=== PATIENT | female | born 1960 | race Caucasian/White ===

== ENCOUNTER 2019-05-08 21:12 | Inpatient (IN) ==
[2019-05-08 21:52] LABS: Basophils # (auto) 0.03 K/uL (0-0.2); Basophils % (auto) 0.4 %; Eosinophils # (auto) 0.22 K/uL (0-0.5); Eosinophils % (auto) 2.8 %; Hematocrit (blood only) 42.4 % (37-47); Hemoglobin 14.6 g/dL (12.0-16.0); Immature Granulocytes # (auto) 0.02 K/uL (0.00-0.02); Immature Granulocytes % (auto) 0.3 %; Lymphocytes # (auto) 3.18 K/uL (1.2-3.4); Lymphocytes % (auto) 41.1 %; Mean Corpuscular Hgb Conc 34.4 g/dL (32-36); Mean Corpuscular Volume 96.8 fL (80-100); Mean Platelet Volume 9.9 fL (7.4-10.4); Monocytes # (auto) 1.02 K/uL (0.11-0.59); Monocytes % (auto) 13.2 %; Neutrophils # (auto) 3.26 K/uL (1.4-6.5); Neutrophils % (auto) 42.2 %; Platelet Count 276 K/uL (130-400); RDW Coefficient of Variation 12.8 % (11.5-14.5); RDW Standard Deviation 44.8 fL (36.4-46.3); Red Blood Count 4.38 M/uL (4.2-5.4); White Blood Count 7.73 K/uL (4.8-10.8)
--- NOTE | 2019-05-08 22:07 | CT Scan Report ---
HEAD CT NONCONTRAST CT DOSE: 537.48 mGy.cm HISTORY: episode of left arm tingling TECHNIQUE: Multiaxial CT images of the head were performed without the use of intravenous contrast. A utomated exposure control was utilized for this study. A dose lowering technique was utilized adheri ng to the principles of ALARA. Comparison: None. Findings: The paranasal sinuses and mastoid air cells are clear. The calvarium and skull base are int act. The ventricles and sulci are within normal limits. There is no mass, hematoma, midline shift, or acute infarct. Impression: No acute intracranial abnormality. Electronically signed by: Srinath Alcantara M.D. 05/08/2019 10:05 PM
[2019-05-08 22:11] LABS: Alanine Aminotransferase 18 U/L (12-78); Albumin Level 3.8 gm/dl (3.4-5.0); Aspartate Aminotransferase 17 U/L (15-37); BUN Creatinine Ratio 8.8 (10-20); Blood Urea Nitrogen 8 mg/dl (7-18); Calcium 9.1 mg/dl (8.5-10.1); Carbon Dioxide 29 mmol/L (21-32); Chloride 104 mmol/L (98-107); Creatinine Clr Calc Pharmacy 59.5 ml/min; Est GFR (African American) 78.5; Est GFR (Non-African American) 67.7; Glucose 104 mg/dl (70-99); Potassium 3.7 mmol/L (3.5-5.1); Sodium 139 mmol/L (136-145)
--- NOTE | 2019-05-08 22:15 | XRay Report ---
XR chest 1V portable HISTORY: weakness COMPARISON: None. FINDINGS: The lungs are clear. Cardiac silhouette is normal in size. No pleural effusions. No pneumot horax. IMPRESSION: No acute process. Electronically signed by: Srinath Alcantara M.D. 05/08/2019 10:14 PM
[2019-05-08 22:22] LABS: Alkaline Phosphatase 84 U/L (45-117); Bilirubin,Total 0.3 mg/dl (0.2-1); Globulin 3.7 gm/dl (2.5-4.0); Total Protein 7.5 gm/dl (6.4-8.2); Troponin I < 0.015 ng/ml (0-0.045)
[2019-05-08 22:34] LABS: T4 Free Thyroxine 0.95 ng/dl (0.8-1.6)
[2019-05-08] MEDS ORDERED: ASPIRIN CHEW 324 MG PO STA (23:15)
[2019-05-08] MEDS ORDERED: POTASSIUM CHLORIDE 20 MEQ TABCR PO STA (23:20)
--- NOTE | 2019-05-08 23:30 | Emergency Department Note ---
Entered by Lian Cardenas acting as a scribe for History of Present Illness General Chief complaint: Neuro Symptoms/Deficit Stated complaint: TINGLING IN ARMS & FINGERS, DIZZY Time Seen by Provider: 05/08/19 21:28 History of Present Illness Associated symptoms: + other (- neck pain, +anxious, +hair loss); no confusion, no chest pain, no fever/chills and no headaches Treatments prior to arrival: none The patient is a 58 year old female that presents to the Emergency Department with complaints of numbness in her left hand. Per the patient, her symptoms began 4 days ago after she left her friends house. When the patient got home, she was picking up a water bottle and her entire left arm went numb and the feeling soon returned after a few minutes. She has had similar episodes throughout the past few days. She also is feeling a tingling sensation in both of her arms. 4 days ago, before the symptoms began, she helped move a tent about three feet and was fine right after. The patient has been going to work since the incidents. No fevers, headache, chest pain, heart racing, neck pain. The patient is anxious and has Graves disease. The patient was on an estrogen patch that she took off one day ago. The patient also has had hair loss for a long time. The patient has no history of strokes. The patient has been a smoker for about 40 years. Home Medications Home Medications Medication Instructions Recorded Confirmed Type estradiol 0.05 mg TRANSDERMAL 2XWK 05/08/19 05/08/19 History spironolactone 25 mg PO BID 05/08/19 05/08/19 History Allergies Allergy/AdvReac Type Severity Reaction Status Date / Time No Known Allergies Allergy Verified 05/08/19 22:31 Past Med/Surg History Medical History Graves disease Social History Feels Safe at Home: Yes Smoking Status: Current every day smoker Review of Systems See HPI for pertinent positives & negatives. and A total of 10 systems reviewed and were otherwise negative Physical Exam Vital Signs Vital Signs - 24 hr 05/08/19 21:14 05/08/19 22:07 05/08/19 23:51 Temperature 36.5 C Temperature Source Oral Sepsis Recent Fever Within 48 Hours No Sepsis New/Unexplained Change in Mental Status No Sepsis Action Taken by Nursing No Action Required Pulse Rate 113 H Pulse Rate [Right Finger] 83 83 Pulse Rhythm Regular Pulse Rhythm [Right Finger] Regular Regular Pulse Strength Normal Pulse Strength [Right Finger] Normal Respiratory Rate 18 18 18 Respiratory Effort / Characteristics Non-Labored Spontaneous Non-Labored Respiratory Depth Normal Normal Normal Respiratory Pattern Regular Regular Blood Pressure 153/90 H Blood Pressure [Left Arm] 107/80 107/80 Blood Pressure Mean 111 Blood Pressure Mean [Left Arm] 89 89 Blood Pressure Position Sitting Blood Pressure Position [Left Arm] Sitting Pulse Oximetry 100 99 96 Oxygen Delivery Method Room Air Room Air Room Air General: Non-ill appearing slender older female in no acute distress. HEENT: Normal cephalic atraumatic. Pupils are equal round and reactive to light. Extraocular movements are intact. Exophthalmos Oropharynx is pink with moist mucous membranes. No swelling of the mouth lips or tongue. Neck: Supple with a midline trachea. No meningeal signs or stiffness, no JVD or bruits. No Stridor. No goiter. Chest: Clear to auscultation bilaterally. No wheezes or rhonchi. No increased work of breathing. Heart: regular rate and rhythm. Abdomen: Soft nontender, nondistended without rebound guarding or rigidity. Extremities: No cyanosis clubbing or edema. No calf tenderness or asymmetry Spine/Back. Non tender to palpation. No CVA tenderness Skin: Good turgor without rashes. Neurologic exam: Cranial nerves two through 12 are intact. Motor and sensation are intact and symmetrical throughout. No tremor, finger to nose intact. Negative Romberg. Normal gait, normal heel to toe gait. Course 2127: The patient was evaluated in room A12B. A physical exam was performed. 2158: I checked up on the patient, she just left for her CT scan. 2254: I checked up on the patient and she is resting comfortably, she is asymptomatic. 6: I spoke with Dr. Rao, [facility] Hospitalist, about the patients case and he agreed to accept the patient for further evaluation. 2325: The patient has been admitted. Administered Medications Discontinued Medications Aspirin (Aspirin) 324 mg PO NOW STA Stop: 05/08/19 23:16 Last Admin: 05/08/19 23:22 Dose: 324 mg Documented by: [id number] Potassium Chloride (Klor-Con M20) 40 meq PO NOW STA Stop: 05/08/19 23:21 Last Admin: 05/09/19 00:06 Dose: 40 meq Documented by: [id number] Medical Decision Making Differential Diagnosis Differential Diagnosis: TIA, intracranial process, anxiety, neuropathy, thyroid disease, electrolyte or metabolic abnormalities Medical Records Attestation: I reviewed the patient's medical records. Home Medications Current Medication List: was personally reviewed by me Laboratory Data Attestation: I reviewed the patient's lab results. Result diagrams: 05/08/19 21:44 05/08/19 21:44 Lab Results 05/08/19 05/08/19 Range/Units 21:44 21:44 WBC 7.73 (4.8-10.8) K/uL RBC 4.38 (4.2-5.4) M/uL Hgb 14.6 (12.0-16.0) g/dL Hct 42.4 (37-47) % MCV 96.8 (80-100) fL MCH 33.3 (25-34) pg MCHC 34.4 (32-36) g/dL RDW Std Deviation 44.8 (36.4-46.3) fL RDW Coeff of Prasanna 12.8 (11.5-14.5) % Plt Count 276 (130-400) K/uL MPV 9.9 (7.4-10.4) fL Immature Gran % (Auto) 0.3 % Neut % (Auto) 42.2 % Lymph % (Auto) 41.1 % [place] % (Auto) 13.2 % Eos % (Auto) 2.8 % Baso % (Auto) 0.4 % Immature Gran # (Auto) 0.02 (0.00-0.02) K/uL Neut # (Auto) 3.26 (1.4-6.5) K/uL Lymph # (Auto) 3.18 (1.2-3.4) K/uL [place] # (Auto) 1.02 H (0.11-0.59) K/uL Eos # (Auto) 0.22 (0-0.5) K/uL Baso # (Auto) 0.03 (0-0.2) K/uL Sodium 139 (136-145) mmol/L Potassium 3.7 (3.5-5.1) mmol/L Chloride 104 (98-107) mmol/L Carbon Dioxide 29 (21-32) mmol/L Anion Gap 6.0 (3-11) BUN 8 (7-18) mg/dl Creatinine 0.93 (0.6-1.2) mg/dl Est Cr Clr Drug Dosing 59.5 ml/min Est GFR ( Amer) 78.5 Est GFR (Non-Af Amer) 67.7 BUN/Creatinine Ratio 8.8 L (10-20) Glucose 104 H (70-99) mg/dl Calcium 9.1 (8.5-10.1) mg/dl Magnesium 2.1 (1.8-2.4) mg/dl Total Bilirubin 0.3 (0.2-1) mg/dl AST 17 (15-37) U/L ALT 18 (12-78) U/L Alkaline Phosphatase 84 (45-117) U/L Troponin I < 0.015 (0-0.045) ng/ml Total Protein 7.5 (6.4-8.2) gm/dl Albumin 3.8 (3.4-5.0) gm/dl Globulin 3.7 (2.5-4.0) gm/dl Albumin/Globulin Ratio 1.0 (0.9-2) TSH 7.160 H (0.300-4.500) uIu/ml Free T4 0.95 (0.8-1.6) ng/dl Imaging Data Attestation: I personally reviewed and interpreted this imaging study as follows: Radiologist's Impression: Radiology results as stated below per my review and the radiologist's interpretation: HEAD CT NONCONTRAST CT DOSE: 537.48 mGy.cm HISTORY: episode of left arm tingling TECHNIQUE: Multiaxial CT images of the head were performed without the use of intravenous contrast. Automated exposure control was utilized for this study. A dose lowering technique was utilized adhering to the principles of ALARA. Comparison: None. Findings: The paranasal sinuses and mastoid air cells are clear. The calvarium and skull base are intact. The ventricles and sulci are within normal limits. There is no mass, hematoma, midline shift, or acute infarct. Impression: No acute intracranial abnormality. Electronically signed by: Srinath Alcantara M.D. 05/08/2019 10:05 PM XR chest 1V portable HISTORY: weakness COMPARISON: None. FINDINGS: The lungs are clear. Cardiac silhouette is normal in size. No pleural effusions. No pneumothorax. IMPRESSION: No acute process. Electronically signed by: Srinath Alcantara M.D. 05/08/2019 10:14 PM ECG Data Attestation: I personally reviewed and interpreted this ECG as follows: Indication: other (numbness) Rate (beats per minute): 85 Rhythm: normal sinus Findings: no ST depression, no ST elevation, no acute ischemic change and no ectopy Comparison ECG Date: no prior available Blood Pressure Blood Pressure Findings: Normal blood pressure MDM Narrative This patient comes in as described above. She was placed in room A12. She is here for treatment and evaluation of feeling anxious and shaky after having 3 recent episodes where she had some numbness and weakness in her left hand. This happened several days ago and lasted about 10 seconds it occurred twice the next day. She has had none since then. She also tingling in her face at the time. She has no neurologic deficits at present. IV access established and blood work was obtained. CAT scan of her head is unremarkable. EKG does not suggest acute coronary syndrome or arrhythmia. She has no acute electrolyte or metabolic abnormalities. Her TSH is mildly elevated but her free T4 is normal and I do not think this is related to acute thyroid issue. She was given aspirin 324 mg chewable. I am concerned with her repetitive symptoms that she could have had stuttering TIA type picture and I do think she needs to be admitted/observe for further inpatient neurologic evaluation and monitoring. I have consulted Dr. Michael from [facility] to see her for these measures. Impression & Plan Brain TIA, Graves disease, Numbness and tingling in left hand Discharge Plan Visit Data Chief Complaint: Neuro Symptoms/Deficit Stated Complaint: TINGLING IN ARMS & FINGERS, DIZZY ED Provider: Mitchel Alejandra Discharge Problem: Brain TIA, Graves disease, Numbness and tingling in left hand Patient Disposition: Being Evaluated by Hospitalist Forms Stand Alone Forms: My [facility] [employer] Prescriptions Prescriptions: No Action estradiol 0.05 mg/24 hr Patch Weekly 0.05 mg transdermal 2XWK RF: 0 spironolactone 25 mg Tablet 25 mg PO BID RF: 0 Referrals Referrals: Georgette Hickman MD [Primary Care Provider] - The scribe's documentation has been prepared under my direction and personally reviewed by me in its entirety. I confirm that the note above accurately reflects all work, treatment, procedures, and medical decision making performed by me.
[2019-05-08 23:37] LABS: Magnesium 2.1 mg/dl (1.8-2.4)
--- NOTE | 2019-05-09 00:01 | History & Physical Report ---
Date of Service May 09, 2019 Assessment & Plan (1) TIA (transient ischemic attack): Episodic left upper extremity weakness, numbness Rule out TIA Graves' ophthalmopathy as per records Subclinical hypothyroidism, TSH slightly elevated Cervical cancer status post surgery Ongoing tobacco abuse OBS Medical telemetry Neurochecks MRI/MRA of the brain RE TIA Aspirin for secondary stroke prevention until TIA ruled out Neurology consult RE recurrent left upper extremity numbness/ weakness nicotine patch DVT prophylaxis. Lovenox subcu Full code History of Present Illness Chief Complaint: Left upper extremity numbness, weakness Primary Care Provider: Georgette Hickman MD History obtained from patient, family, and records. Medical history significant for Graves' disease/ophthalmopathy not on medications, subclinical hypothyroidism as per records, cervical cancer status post surgery, COPD as per records, ongoing tobacco abuse. 3 days ago, patient noted left upper extremity weakness, numbness lasting for about 10 seconds. Patient had trouble grasping objects. No headache, neck pain, chest pain, S OB. No prior episodes. Episode recurred 2 more times 2 days ago. Patient took off her estrogen patch just to make sure medication was not related to symptoms. At the ER, patient received aspirin for possible TIA. 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, office work Allergies Allergy/AdvReac Type Severity Reaction Status Date / Time No Known Allergies Allergy Verified 05/08/19 22:31 Home Medications Home Medications Medication Instructions Recorded Confirmed Type estradiol 0.05 mg TRANSDERMAL 2XWK 05/08/19 05/08/19 History spironolactone 25 mg PO BID 05/08/19 05/08/19 History Past Med/Surg History Medical History Graves disease Social History Feels Safe at Home: Yes Smoking Status: Current every day smoker Review of Systems Review of Systems: As per HPI, all 10 systems reviewed, all other ROS negative Physical Exam Physical Exam: GENERAL: Slightly anxious, no respiratory distress SKIN: Normal color, warm HEENT: Bespectacled, pink palpebral conjunctivae, bilateral proptosis right greater than the left, moist buccal mucosa NECK : Supple, no tenderness, good R OM CHEST : CTA, no tenderness HEART : RRR, no obvious murmurs ABDOMEN: Some distention, nontender EXTREMITIES : No LE swelling/tenderness, no other conspicuous deformities noted NEUROLOGIC : Coherent, no facial asymmetry, negative pronator drift Results & Data Vital Signs (Past 12 Hours) Vital Signs Temp Pulse Pulse Resp BP BP Pulse Ox 05/08/19 23:51 83 18 107/80 96 05/08/19 22:07 83 18 107/80 99 05/08/19 21:14 36.5 C 113 H 18 153/90 H 100 Laboratory Results Laboratory Results WBC 7.73 K/uL (4.8-10.8) 05/08/19 21:44 RBC 4.38 M/uL (4.2-5.4) 05/08/19 21:44 Hgb 14.6 g/dL (12.0-16.0) 05/08/19 21:44 Hct 42.4 % (37-47) 05/08/19 21:44 MCV 96.8 fL (80-100) 05/08/19 21:44 MCH 33.3 pg (25-34) 05/08/19 21:44 MCHC 34.4 g/dL (32-36) 05/08/19 21:44 RDW Std Deviation 44.8 fL (36.4-46.3) 05/08/19 21:44 RDW Coeff of Prasanna 12.8 % (11.5-14.5) 05/08/19 21:44 Plt Count 276 K/uL (130-400) 05/08/19 21:44 MPV 9.9 fL (7.4-10.4) 05/08/19 21:44 Immature Gran % (Auto) 0.3 % 05/08/19 21:44 Neut % (Auto) 42.2 % 05/08/19 21:44 Lymph % (Auto) 41.1 % 05/08/19 21:44 [place] % (Auto) 13.2 % 05/08/19 21:44 Eos % (Auto) 2.8 % 05/08/19 21:44 Baso % (Auto) 0.4 % 05/08/19 21:44 Immature Gran # (Auto) 0.02 K/uL (0.00-0.02) 05/08/19 21:44 Neut # (Auto) 3.26 K/uL (1.4-6.5) 05/08/19 21:44 Lymph # (Auto) 3.18 K/uL (1.2-3.4) 05/08/19 21:44 [place] # (Auto) 1.02 K/uL (0.11-0.59) H 05/08/19 21:44 Eos # (Auto) 0.22 K/uL (0-0.5) 05/08/19 21:44 Baso # (Auto) 0.03 K/uL (0-0.2) 05/08/19 21:44 Sodium 139 mmol/L (136-145) 05/08/19 21:44 Potassium 3.7 mmol/L (3.5-5.1) 05/08/19 21:44 Chloride 104 mmol/L (98-107) 05/08/19 21:44 Carbon Dioxide 29 mmol/L (21-32) 05/08/19 21:44 Anion Gap 6.0 (3-11) 05/08/19 21:44 BUN 8 mg/dl (7-18) 05/08/19 21:44 Creatinine 0.93 mg/dl (0.6-1.2) 05/08/19 21:44 Est Cr Clr Drug Dosing 59.5 ml/min 05/08/19 21:44 Est GFR ( Amer) 78.5 05/08/19 21:44 Est GFR (Non-Af Amer) 67.7 05/08/19 21:44 BUN/Creatinine Ratio 8.8 (10-20) L 05/08/19 21:44 Glucose 104 mg/dl (70-99) H 05/08/19 21:44 Calcium 9.1 mg/dl (8.5-10.1) 05/08/19 21:44 Magnesium 2.1 mg/dl (1.8-2.4) 05/08/19 21:44 Total Bilirubin 0.3 mg/dl (0.2-1) 05/08/19 21:44 AST 17 U/L (15-37) 05/08/19 21:44 ALT 18 U/L (12-78) 05/08/19 21:44 Alkaline Phosphatase 84 U/L (45-117) 05/08/19 21:44 Troponin I < 0.015 ng/ml (0-0.045) 05/08/19 21:44 Total Protein 7.5 gm/dl (6.4-8.2) 05/08/19 21:44 Albumin 3.8 gm/dl (3.4-5.0) 05/08/19 21:44 Globulin 3.7 gm/dl (2.5-4.0) 05/08/19 21:44 Albumin/Globulin Ratio 1.0 (0.9-2) 05/08/19 21:44 TSH 7.160 uIu/ml (0.300-4.500) H 05/08/19 21:44 Free T4 0.95 ng/dl (0.8-1.6) 05/08/19 21:[address] head: No acute intracranial abnormality. Chest x-ray showed no acute process EKG as per my interpretation : Rate 85, NSR, no ischemia
[2019-05-09] MEDS ORDERED: PROMETHAZINE HCL 12.5 MG in SODIUM CHLORIDE 0.9% 50 ML IV PRN (00:45)
[2019-05-09] MEDS ORDERED: LORazepam 0.25 MG/0.5 ML VIAL IV PRN (00:45)
[2019-05-09] MEDS ORDERED: TRAMADOL HCL 50 MG TABLET PO PRN (00:45)
[2019-05-09] MEDS ORDERED: ACETAMINOPHEN 325 MG TAB PO PRN (00:45)
[2019-05-09] MEDS ORDERED: PHARMACIST DISCHARGE MED REC CONSULT PRN (00:45)
[2019-05-09] MEDS ORDERED: LACTATED RINGER'S 1,000 ML IV ONE (00:45)
[2019-05-09] MEDS ORDERED: NITROGLYCERIN SL 0.4 MG/TAB TAB SL PRN (00:45)
[2019-05-09] MEDS: LORazepam 0.25 MG/0.5 ML VIAL IV PRN ×2 (02:14→21:34)
--- NOTE | 2019-05-09 06:58 | Magnetic Resonance Report ---
MR angio head wo con HISTORY: 58 years-old Female tia acute strokelike symptoms with left arm numbness COMPARISON: Brain MRI of same day TECHNIQUE: MRA of the head without the use of IV contrast was obtained utilizing 3-D [id number] s equencing with MIP reformats. FINDINGS: Range Mechanic localizer images demonstrate no gross extracranial abnormality. The imaged bilateral internal c arotid arteries, middle and anterior cerebral arteries appear widely patent and unremarkable. The ant erior communicating artery appears normal. Patency of the bilateral vertebral arteries, basilar arter y and bilateral posterior cerebral arteries. No aneurysm, dissection, high-grade stenosis or proximal branch occlusion. IMPRESSION: Unremarkable MRA of the head. The above report was generated using voice recognition software. It may contain grammatical, syntax o r spelling errors. Electronically signed by: Vipin Beck M.D. 05/09/2019 6:56 AM
--- NOTE | 2019-05-09 07:06 | Magnetic Resonance Report ---
MRI OF THE BRAIN WITHOUT IV CONTRAST CLINICAL HISTORY: Transient ischemic attack. COMPARISON STUDY: CT of the brain dated 05/08/2019. TECHNIQUE: MRI of the brain was performed utilizing various T1 and T2-weighted sequences in the axial , sagittal, and coronal planes. IV contrast was not administered for this examination. FINDINGS: Brain parenchyma: There is a subcentimeter focus of restricted diffusion identified within the used car renovator ior right frontal cortex seen on diffusion-weighted image #15. This is consistent with acute to subac nevaeh ischemia. No additional foci of restricted diffusion are identified. There is no hemorrhage or ma ss effect. Glover-white matter differentiation is preserved. No extra-axial fluid collection is seen. T he cerebellar tonsils are normal in configuration. Ventricles, sulci, and cisterns: Normal in configuration. Pituitary and sella: Unremarkable. Intracranial vasculature: Normal flow voids are maintained at the skull base. Orbits: The bony orbits are grossly intact. Orbital contents are normal in appearance. Sinuses and mastoids: The paranasal sinuses are clear. There is a trace right mastoid effusion. Calvarium: Unremarkable. Cervical cord: Partially visualized cervical spinal cord is normal in morphology and signal intensity . IMPRESSION: 1. There is a subcentimeter focus of restricted diffusion identified within the posterior right front al cortex consistent with an acute to subacute infarct. 2. No additional foci of restricted diffusion are identified. 3. There is no hemorrhage or mass effect. Electronically signed by: Chase Moise M.D. 05/09/2019 7:05 AM
[2019-05-09 07:08] LABS: Basophils # (auto) 0.05 K/uL (0-0.2); Basophils % (auto) 0.9 %; Eosinophils # (auto) 0.18 K/uL (0-0.5); Eosinophils % (auto) 3.2 %; Hematocrit (blood only) 38.8 % (37-47); Hemoglobin 13.3 g/dL (12.0-16.0); Lymphocytes # (auto) 2.29 K/uL (1.2-3.4); Lymphocytes % (auto) 40.2 %; Mean Corpuscular Hgb Conc 34.3 g/dL (32-36); Monocytes # (auto) 0.66 K/uL (0.11-0.59); Monocytes % (auto) 11.6 %; Neutrophils # (auto) 2.52 K/uL (1.4-6.5); Neutrophils % (auto) 44.1 %; Platelet Count 252 K/uL (130-400); RDW Coefficient of Variation 12.7 % (11.5-14.5); RDW Standard Deviation 44.7 fL (36.4-46.3); Red Blood Count 4.04 M/uL (4.2-5.4)
[2019-05-09 07:14] LABS: Partial Thromboplastin Time 27.7 Seconds (21.0-31.0); Prothrombin Time 10.5 Seconds (9.0-12.0)
[2019-05-09 07:38] LABS: Chol HDL Ratio 3; Cholesterol 169 mg/dl (0-200); HDL Cholesterol 65 mg/dl; LDL Cholesterol Calculated 82 mg/dl; Triglycerides 109 mg/dl (0-150); VLDL Cholesterol 22 mg/dl
[2019-05-09] MEDS: ATORVASTATIN 40 MG TAB PO SCH (08:31)
--- NOTE | 2019-05-09 08:33 | Ultrasound Report ---
ULTRASOUND OF THE CAROTID ARTERIES CLINICAL HISTORY: Stroke. COMPARISON STUDY: No priors. TECHNIQUE: Real-time, grayscale, and color Doppler sonography of the carotid arteries is performed. I mages are reviewed in the transverse and longitudinal planes. FINDINGS: Blood pressure in the right arm measures 95/67 and blood pressure in the left arm measures 90/72. The carotid arteries are patent bilaterally and demonstrate antegrade flow. There is no significant a therosclerotic plaque identified. Normal doppler arterial waveforms are seen throughout. Velocity mely surements are listed below. Common carotid peak systolic velocity (cm/sec): RIGHT: 70 LEFT: 80 ICA proximal peak systolic velocity (cm/sec): RIGHT: 41 LEFT: 62 ICA mid peak systolic velocity (cm/sec): RIGHT: 41 LEFT: 44 ICA distal peak systolic velocity (cm/sec): RIGHT: 48 LEFT: 48 ICA/CC peak systolic ratio: RIGHT: 0.7 LEFT: 0.8 Antegrade flow was shown in the vertebral arteries. The external carotid arteries are patent. IMPRESSION: 1. There is no sonographic evidence of hemodynamically significant stenosis in the right or left samuel tid arterial system. 2. Antegrade flow is shown in the vertebral arteries. Electronically signed by: Chase Moise M.D. 05/09/2019 8:31 AM
[2019-05-09] MEDS: ENOXAPARIN INJ 30 MG/0.3 ML SYR SQ SCH (08:36)
[2019-05-09 08:52] LABS: Lyme Ab IgM w/WB Rflx Negative (Negative)
[2019-05-09 08:53] LABS: Lyme Ab IgG w/WB Rflx Negative (Negative)
[2019-05-09] MEDS ORDERED: ASPIRIN 325 MG ECTAB PO SCH (09:00)
[2019-05-09 09:18] LABS: Estimated Average Glucose 103 mg/dl
[2019-05-09] MEDS: ASPIRIN 81 MG ECTAB PO SCH (09:21)
[2019-05-09] MEDS: CLOPIDOGREL BISULFATE 75 MG TAB PO SCH (13:58)
--- NOTE | 2019-05-09 15:28 | Neurology Consultation ---
Date of Consultation May 09, 2019 Assessment & Plan (1) Ischemic stroke: 1. MRI brain- R frontal cortex 2. TTE- no ASD 3. PT/OT speech no current needs 4. started on aspirin 81 mg and plavix 75 mg was not on prior- 21 days and then stop plavix 5. strongly suggest smoking cessation 6. estogen patch- patient stopped prior to admission do not restart 7. outpatient ZIO monitor 8. hypercoag work up 9. optimize HTN, HLD LDL <70- low dose for antiinflammatory properties 10. ok to discharge tomorrow Supervising Physician Co-Signing Physician Notes I have seen and discussed above patient with Dr Erin Grover, neurology. Pt seen and examined. Pt is a smoker, used estrogen patch and min elevated lipids. MRI small focal cortical r temp infarct. Carotid, MRA head ok, Exam notable only for flattened L NLF. Imp cortical infarct. Smoking cessation, statin, dc estrogen. Hypercoag state hirsch. Zio patch as outpt. Infarct cortical, poss embolic. Dual anti-plt tx as above. Pt should see us in follow-up post dc. CUAUHTEMOC Grover MD History of Present Illness Reason for Consultation: stroke Requesting Physician: Peyton Asher MD Attending Physician: Peyton Asher MD History of Present Illness Sonam is a 58 year old female with PMH graves disease that presents to the ED after a 4 day history of complaints of numbness in her left hand. She left her friends house after helping move some heavy things. When the she got home, she was picking up a water bottle and her entire left arm went numb and was unable to grasp the bottle. She has had similar episodes throughout the past few days which did include a numbness on the left lower jawline. She has been on an estrogen patch for about 10 years but she took it off one day ago. She has no person history or family history of stroke, blood clots, or irregular heart rate. she has 11 brothers and 4 sisters. She is a 1 ppd smoker for about 30 years, drinks 1 glass of wine at night, 2 cups coffee per day, no other drugs. denies CP, SOB, abdominal pain, one sided weakness, numbness tingling, vision changes, swallowing issues, N, V, dizziness,palpitations, falls. Allergies Allergy/AdvReac Type Severity Reaction Status Date / Time No Known Allergies Allergy Verified 05/08/19 22:31 Home Medications Home Medications Medication Instructions Recorded Confirmed Type estradiol 0.05 mg TRANSDERMAL 2XWK 05/08/19 05/08/19 History spironolactone 25 mg PO BID 05/08/19 05/08/19 History Patient History Medical History Graves disease Social History Communication Ability: Effective Beliefs That Will Affect Care: None Current Living Situation: Family Other Information That Helps Us Care for You: No Feels Safe at Home: Yes Safety Concerns: Feels Safe At This Time Smoking Status: Current every day smoker Tobacco Type: cigarettes Cigarettes Per Day: 1 ppd Do You Dip or Chew Tobacco: No Tobacco Cessation Education Requested by Patient: No Hx Alcohol Use: No Hx Substance Use: No Physical Exam Physical Exam: Physical Exam: Constitutional: appearance nourished,thin very anxious and tearful Ears, Nose, Mouth and Throat: mucous membranes moist, no injection and skin normal, eyes normal Cardiovascular: normal S-1 and S-2 and regular rate and rhythm Respiratory: clear to auscultation (CTA) and no rales, ronchi or wheeze Musculoskeletal: no peripheral edema and good distal pulses Skin: no stigmata of neurocutaneous disease noted and normal and intact Eyes: extraocular muscles intact (EOMI) and pupils equal, round and reactive to light (PERRL), Graves' ophthalmopathy NEUROLOGIC EXAMINATION: Mental status: Alert and interactive Oriented to full date and location Oriented to person Speech fluent with no evidence of aphasia Cranial Nerves smile eye brow raise symmetric Reflexes: Deep tendon reflexes were symmetrical and graded 2/5. Plantar responses were flexor. Sensory: intact to light and cool touch Coordination: finger to nose, rapid hand movements intact Gait/Stance: Posture normal. Gait normal: with steady with steps, base, turning, heel and toe walking (slight issues) and tandem gait. Motor: Negative for pronator drift of out stretched arms with eyes closed. Strength: biceps triceps hand slider assembler 5/5 bilaterally hip flex plantar flex ext 5/5 bilaterally Results & Data Vital Signs (Past 12 Hours) Vital Signs Temp Pulse Pulse Resp BP BP Pulse Ox 05/09/19 14:57 36.6 C 84 16 108/73 99 07/08/19 11:40 36.7 C 84 16 101/69 98 05/09/19 08:00 67 05/09/19 07:23 36.6 C 63 16 97/66 L 98 05/09/19 04:00 36.7 C 84 18 95/68 L 98 Pulse Ox 05/09/19 14:57 05/09/19 11:40 05/09/19 08:00 98 05/09/19 07:23 05/09/19 04:00 Laboratory Results Abnormal lab results 05/08/19 05/08/19 05/09/19 Range/Units 21:44 21:44 06:22 RBC 4.04 L (4.2-5.4) M/uL [place] # (Auto) 1.02 H 0.66 H (0.11-0.59) K/uL BUN/Creatinine Ratio 8.8 L (10-20) Glucose 104 H (70-99) mg/dl TSH 7.160 H (0.300-4.500) uIu/ml Diagnostic Findings MRI brain-There is a subcentimeter focus of restricted diffusion identified within the posterior right frontal cortex consistent with an acute to subacute infarct. No additional foci of restricted diffusion are identified. There is no hemorrhage or mass effect. carotid doppler-here is no sonographic evidence of hemodynamically significant stenosis in the right or left carotid arterial system. Antegrade flow is shown in the vertebral arteries. CXR- no acute process Unremarkable MRA of the head. CT head-No acute intracranial abnormality. TTE- EF 45-50% no ASD
--- NOTE | 2019-05-09 16:11 | Hospitalist Progress Note ---
Date of Service May 09, 2019 Assessment & Plan (1) CVA (cerebral vascular accident): Present on admission with Left upper extremities numbness and weakness CT head showed no acute intracranial finding MRI showed subcentimeter focus of restricted diffusion identified within the posterior right frontal cortex consistent with an acute to subacute infarct. Carotid doppler u/s showed no sonographic evidence of hemodynamically significant stenosis in the right or left carotid arterial system. ECHO showed no wall motion abnormality with EF 45- 50 %. No interatrial shunt No arrhythmia on tele monitor Continue aspirin 81 mg and plavix 75 mg daily, then after 21 days stop plavix and continue aspirin Continue Statin statin Will need outpatient ZIO patch as an outpatient Counseling on smoking cessation Follow up with neurology (2) Graves disease: TSH 7.16, Free T4 and Total T3 normal Stable (3) Tobacco abuse: Counseling on tobacco cessation Reduce LF function Asymptomatic ECHO showed no wall motion abnormality with EF 45-50% Discussed finding with cardiology that read the echo and recommended outpatient follow up DVT px on Lovenox subq Code Status FULL CODE Disposition Follow up with Dr. Hickman on 05/17 @ 11:05 AM Follow up with neurology in 4 to 6 weeks Subjective Pt was seen and examined Lying in bed with no distress Pt said that she feels fine Denies any chest pain, palpitation, dizziness and SOB Physical Exam Physical Exam: General- No acute distress Head- atraumatic Eyes- PERRL, EOMI, ENT- oropharynx clear Neck- supple, no JVD Lungs- clear to auscultation Heart- regular rhythm; no murmur Abdomen- normal bowel sounds, soft, nontender Extremities- no calf tenderness Neuro- alert, oriented x 3; PERRL, EOMI; no facial palsy; no dysarthria Skin- warm & dry Results & Data Vital Signs (Past 12 Hours) Vital Signs Temp Pulse Pulse Resp BP BP Pulse Ox 05/09/19 14:57 36.6 C 84 16 108/73 99 05/09/19 11:40 36.7 C 84 16 101/69 98 05/09/19 08:00 67 05/09/19 07:23 36.6 C 63 16 97/66 L 98 05/09/19 04:00 36.7 C 84 18 95/68 L 98 Pulse Ox 05/09/19 14:57 05/09/19 11:40 05/09/19 08:00 98 05/09/19 07:23 05/09/19 04:00
[2019-05-09] MEDS: NICOTINE 21 MG/24 HR TDSY TD PRN (17:14)
[2019-05-10] MEDS: CLOPIDOGREL BISULFATE 75 MG TAB PO SCH (08:09)
[2019-05-10] MEDS: ASPIRIN 81 MG ECTAB PO SCH (08:09)
[2019-05-10] MEDS: ENOXAPARIN INJ 30 MG/0.3 ML SYR SQ SCH (08:09)
[2019-05-10] MEDS: ATORVASTATIN 40 MG TAB PO SCH (08:09)
[2019-05-10] MEDS: NICOTINE 21 MG/24 HR TDSY TD PRN (11:21)
--- NOTE | 2019-05-10 12:13 | Hospitalist Progress Note ---
Date of Service May 10, 2019 Assessment & Plan (1) CVA (cerebral vascular accident): Present on admission with Left upper extremities numbness and weakness CT head showed no acute intracranial finding MRI showed subcentimeter focus of restricted diffusion identified within the posterior right frontal cortex consistent with an acute to subacute infarct. Carotid doppler u/s showed no sonographic evidence of hemodynamically significant stenosis in the right or left carotid arterial system. ECHO showed no wall motion abnormality with EF 45- 50 %. No interatrial shunt No arrhythmia on tele monitor Continue aspirin 81 mg and plavix 75 mg daily, then after 21 days stop plavix and continue aspirin Continue Statin, will need to check LFT in 2 weeks to monitor liver enzymes Will need outpatient ZIO patch as an outpatient Counseling on smoking cessation Follow up with neurology in 4 weeks (2) Graves disease: TSH 7.16, Free T4 and Total T3 normal Stable (3) Tobacco abuse: Counseling on tobacco cessation Reduce LF function Asymptomatic ECHO showed no wall motion abnormality with EF 45-50% Discussed finding with cardiology that read the echo and recommended outpatient follow up DVT px on Lovenox subq Code Status FULL CODE Disposition Follow up with Dr. Hickman (Pt will be in vacation with family) will call for the appointment Follow up with neurology in 4 to 6 weeks Subjective Pt was seen and examined Lying in bed with no distress Pt is very anxious to go home She said that she feels fine Denies ny chest pain, palpitation, dizziness, numbness and weakness Physical Exam Physical Exam: General- No acute distress Head- atraumatic Eyes- PERRL, EOMI, ENT- oropharynx clear Neck- supple, no JVD Lungs- clear to auscultation Heart- regular rhythm; no murmur Abdomen- normal bowel sounds, soft, nontender Extremities- no calf tenderness Neuro- alert, oriented x 3; PERRL, EOMI; no facial palsy; no dysarthria Skin- warm & dry Results & Data Vital Signs (Past 12 Hours) Vital Signs Temp Pulse Pulse Resp BP Pulse Ox 05/10/19 11:19 36.6 C 87 16 104/73 97 05/10/19 07:33 36.6 C 82 20 99/66 L 97 05/10/19 07:11 70 05/10/19 04:00 36.4 C L 70 18 91/61 L 97 05/10/19 00:19 36.4 C L 83 18 99/61 L 96
[2019-05-10] MEDS ORDERED: STROKE PATIENT DISCHARGE STA (12:31)
--- NOTE | 2019-05-10 13:06 | Pharmacy Report ---
Pharmacist Stroke Counseling - Date of Service May 10, 2019 - Scope: Pharmacy has been consulted to provide medication discharge counseling for this patient admitted with CVA as per the Pharmacist Discharge Counseling for Stroke Patients Protocol. - Medications on Discharge: Home Medications Medication Instructions Recorded Confirmed spironolactone 25 mg PO BID 05/08/19 05/08/19 New Rx's Medication Instructions Recorded aspirin [Ecotrin Low Strength] 81 mg PO QAM 30 Days #30 tab 05/10/19 atorvastatin 40 mg PO QAM 30 Days #30 tab 05/10/19 clopidogrel 75 mg PO QAM 30 Days #30 tab 05/10/19 - Action: The above medications, specifically ones for stroke treatment/prophylaxis, have been reviewed in detail with the patient and/or patient market survey representative(s) prior to discharge. This includes indication, common adverse reactions, drug interactions, and medication administration. Medication counseling has been employed using the teach-back method to ensure understanding. - Outcome: The patient and/or patient market survey representative(s) have demonstrated understanding of the medications. Please note, they are aware that the pharmacist will call them within 72 hours post-discharge to confirm that the appropriate medications are being taken and answer any further medication related questions the patient might have at that time. Contact information Individual to be contacted: patient Phone number: [phone] Best time to call: before 6pm (between 0900 and 1400 [place]) Additional comments: * It appears that clopidogrel will be continued for 3 weeks only. * Pt states she does use a medication for acid reflux, I advised that this should not be used until she checks with per PCP or pharmacist to ensure there will not be an interaction with clopidogrel. She agreed to do so. Thank you for allowing pharmacy to be involved in the care of this patient. Please call [phone] or [phone] with any additional questions
--- NOTE | 2019-05-12 08:44 | Discharge Summary ---
Date of Service May 10, 2019 Admission HPI Per Admitting Provider History obtained from patient, family, and records. Medical history significant for Graves' disease/ophthalmopathy not on medications, subclinical hypothyroidism as per records, cervical cancer status post surgery, COPD as per records, ongoing tobacco abuse. 3 days ago, patient noted left upper extremity weakness, numbness lasting for about 10 seconds. Patient had trouble grasping objects. No headache, neck pain, chest pain, S OB. No prior episodes. Episode recurred 2 more times 2 days ago. Patient took off her estrogen patch just to make sure medication was not related to symptoms. At the ER, patient received aspirin for possible TIA. 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, office work Admission Exam Per Admitting Provider GENERAL: Slightly anxious, no respiratory distress SKIN: Normal color, warm HEENT: Bespectacled, pink palpebral conjunctivae, bilateral proptosis right greater than the left, moist buccal mucosa NECK : Supple, no tenderness, good R OM CHEST : CTA, no tenderness HEART : RRR, no obvious murmurs ABDOMEN: Some distention, nontender EXTREMITIES : No LE swelling/tenderness, no other conspicuous deformities noted NEUROLOGIC : Coherent, no facial asymmetry, negative pronator drift Principal Diagnosis CVA (cerebral vascular accident) Grave disease Tobacco abuse Reduce Left Ventricular Systolic Function Discharge Exam General- No acute distress Head- atraumatic Eyes- PERRL, EOMI, ENT- oropharynx clear Neck- supple, no JVD Lungs- clear to auscultation Heart- regular rhythm; no murmur Abdomen- normal bowel sounds, soft, nontender Extremities- no calf tenderness Neuro- alert, oriented x 3; PERRL, EOMI; no facial palsy; no dysarthria Skin- warm & dry Discharge Data Allergies Allergy/AdvReac Type Severity Reaction Status Date / Time No Known Allergies Allergy Verified 05/08/19 22:31 Consultations 05/08/19 23:15 ED Decision to Admit Stat 05/09/19 00:45 Consult Case Management - Discharge Planning Routine Consult Neurology Routine Ordered Studies 05/08/19 21:41 CT head/brain wo con Stat 05/09/19 00:45 MR angio head wo con Routine MR brain wo con Routine 05/09/19 02:45 US carotid doppler BI Routine ULTRASOUND OF THE CAROTID ARTERIES CLINICAL HISTORY: Stroke. COMPARISON STUDY: No priors. TECHNIQUE: Real-time, grayscale, and color Doppler sonography of the carotid arteries is performed. Images are reviewed in the transverse and longitudinal planes. FINDINGS: Blood pressure in the right arm measures 95/67 and blood pressure in the left arm measures 90/72. The carotid arteries are patent bilaterally and demonstrate antegrade flow. There is no significant atherosclerotic plaque identified. Normal doppler arterial waveforms are seen throughout. Velocity measurements are listed below. Common carotid peak systolic velocity (cm/sec): RIGHT: 70 LEFT: 80 ICA proximal peak systolic velocity (cm/sec): RIGHT: 41 LEFT: 62 ICA mid peak systolic velocity (cm/sec): RIGHT: 41 LEFT: 44 ICA distal peak systolic velocity (cm/sec): RIGHT: 48 LEFT: 48 ICA/CC peak systolic ratio: RIGHT: 0.7 LEFT: 0.8 Antegrade flow was shown in the vertebral arteries. The external carotid arteries are patent. IMPRESSION: 1. There is no sonographic evidence of hemodynamically significant stenosis in the right or left carotid arterial system. 2. Antegrade flow is shown in the vertebral arteries. Electronically signed by: Chase Moise M.D. 05/09/2019 8:31 AM Dictated: 05/09/19803 Transcribed: 05/09/19803 MR angio head wo con HISTORY: 58 years-old Female tia acute strokelike symptoms with left arm numbness COMPARISON: Brain MRI of same day TECHNIQUE: MRA of the head without the use of IV contrast was obtained utilizing 3-D [id number] sequencing with MIP reformats. FINDINGS: Key Punch Operator localizer images demonstrate no gross extracranial abnormality. The imaged bilateral internal carotid arteries, middle and anterior cerebral arteries appear widely patent and unremarkable. The anterior communicating artery appears normal. Patency of the bilateral vertebral arteries, basilar artery and bilateral posterior cerebral arteries. No aneurysm, dissection, high-grade stenosis or proximal branch occlusion. IMPRESSION: Unremarkable MRA of the head. The above report was generated using voice recognition software. It may contain grammatical, syntax or spelling errors. Electronically signed by: Vipin Beck M.D. 05/09/2019 6:56 AM Dictated: 05/09/1952 Transcribed: 05/09/19651 MRI OF THE BRAIN WITHOUT IV CONTRAST CLINICAL HISTORY: Transient ischemic attack. COMPARISON STUDY: CT of the brain dated 05/08/2019. TECHNIQUE: MRI of the brain was performed utilizing various T1 and T2-weighted sequences in the axial, sagittal, and coronal planes. IV contrast was not administered for this examination. FINDINGS: Brain parenchyma: There is a subcentimeter focus of restricted diffusion identified within the posterior right frontal cortex seen on diffusion-weighted image #15. This is consistent with acute to subacute ischemia. No additional foci of restricted diffusion are identified. There is no hemorrhage or mass effect. Glover-white matter differentiation is preserved. No extra-axial fluid collection is seen. The cerebellar tonsils are normal in configuration. Ventricles, sulci, and cisterns: Normal in configuration. Pituitary and sella: Unremarkable. Intracranial vasculature: Normal flow voids are maintained at the skull base. Orbits: The bony orbits are grossly intact. Orbital contents are normal in appearance. Sinuses and mastoids: The paranasal sinuses are clear. There is a trace right mastoid effusion. Calvarium: Unremarkable. Cervical cord: Partially visualized cervical spinal cord is normal in morphology and signal intensity. IMPRESSION: 1. There is a subcentimeter focus of restricted diffusion identified within the posterior right frontal cortex consistent with an acute to subacute infarct. 2. No additional foci of restricted diffusion are identified. 3. There is no hemorrhage or mass effect. Electronically signed by: Chase Moise M.D. 05/09/2019 7:05 AM Dictated: 05/09/19700 Transcribed: 05/09/[address]AST CT DOSE: 537.48 mGy.cm HISTORY: episode of left arm tingling TECHNIQUE: Multiaxial CT images of the head were performed without the use of intravenous contrast. Automated exposure control was utilized for this study. A dose lowering technique was utilized adhering to the principles of ALARA. Comparison: None. Findings: The paranasal sinuses and mastoid air cells are clear. The calvarium and skull base are intact. The ventricles and sulci are within normal limits. There is no mass, hematoma, midline shift, or acute infarct. Impression: No acute intracranial abnormality. Electronically signed by: Srinath Alcantara M.D. 05/08/2019 10:05 PM Dictated: 05/08/192201 Transcribed: 05/08/192201 XR chest 1V portable HISTORY: weakness COMPARISON: None. FINDINGS: The lungs are clear. Cardiac silhouette is normal in size. No pleural effusions. No pneumothorax. IMPRESSION: No acute process. Electronically signed by: Srinath Alcantara M.D. 05/08/2019 10:14 PM Dictated: 05/08/192212 Transcribed: 05/08/192212 Hospital Course (1) CVA (cerebral vascular accident): Present on admission with Left upper extremities numbness and weakness CT head showed no acute intracranial finding MRI showed subcentimeter focus of restricted diffusion identified within the posterior right frontal cortex consistent with an acute to subacute infarct. Carotid doppler u/s showed no sonographic evidence of hemodynamically significant stenosis in the right or left carotid arterial system. ECHO showed no wall motion abnormality with EF 45- 50 %. No interatrial shunt No arrhythmia on tele monitor Continue aspirin 81 mg and plavix 75 mg daily, then after 21 days stop plavix and continue aspirin Continue Statin, will need to check LFT in 2 weeks to monitor liver enzymes Will need outpatient ZIO patch as an outpatient Counseling on smoking cessation Follow up with neurology in 4 weeks (2) Graves disease: TSH 7.16, Free T4 and Total T3 normal Stable (3) Tobacco abuse: Counseling on tobacco cessation Reduce LF function Asymptomatic ECHO showed no wall motion abnormality with EF 45-50% Discussed finding with cardiology that read the echo and recommended outpatient follow up DVT px on Lovenox subq Code Status FULL CODE Disposition Follow up with Dr. Hickman (Pt will be in vacation with family) will call for the appointment Follow up with neurology in 4 to 6 weeks Total Time Total Time Spent Total Time Spent (In Minutes): 35 minutes Total Time Includes: Examination of the Patient, Discharge Planning, Medication Reconciliation, Communication With Other Providers and Other Discharge Plan Discharge Items Patient Disposition: Home - Self-Care Reason For Visit: TIA Discharge Diagnosis: CVA (cerebral vascular accident) Grave disease Tobacco abuse Reduce Left Ventricular Systolic Function Discharge Goals: Decrease discomfort, Diagnostic testing, Improve disease control, Improve function and Increase independence Activity: Resume your previous activity Activity Comment: As tolerated Non-emergency contact: Primary Care Provider and Neurologist Call non-emergency contact if: you have any medication questions Follow-up/Referrals: Georgette Hickman MD [Primary Care Provider] - Diet: Heart Healthy Addtl Provider Instructions: Follow up with your primary care provider Dr. Hickman on 05/23 @ 11:05 AM Follow up with neurology with Erin Ramsay PA-C on 06/07 @ 10:25 AM Your physician will arrange for referral to see cardiology for the mildly reduce systolic function You will need to arrange for a ZIO patch to monitor your heart (Your physician or neurology will arrange for that) Counseling on smoking cessation Continue aspirin 81 mg and plavix 75 mg daily for 21 days, then after 21 days stop plavix and continue aspirin Check liver enzymes in 2 weeks while on the cholesterol medication to monitor your liver enzymes While taking plavix and aspirin, please monitor for any bleeding such as blood in your urine and stools Please notify your physician if you develop any bleeding Your physician will follow up hypercoagulable work up (pending) Prescriptions: New atorvastatin 40 mg Tablet 40 mg PO QAM 30 Days Qty: 30 RF: 0 clopidogrel 75 mg Tablet 75 mg PO QAM 30 Days Qty: 30 RF: 0 aspirin [Ecotrin Low Strength] 81 mg Tablet,Delayed Release (Dr/Ec) 81 mg PO QAM 30 Days Qty: 30 RF: 0 Continued spironolactone 25 mg Tablet 25 mg PO BID RF: 0 Discontinued estradiol 0.05 mg/24 hr Patch Weekly 0.05 mg transdermal 2XWK RF: 0 Stand-Alone Forms: Medications to Prevent Stroke, [facility] Discharge Orders: Discharge Order (Routine); Ordered 05/10/19 Ordered By: Peyton Asher Admission Data Admit Date/Time: 05/09/19 02:45 Attending Provider: Peyton Asher Admit Provider: Terry Rao Primary Care Provider: Georgette Hickman Other Providers: Terry Rao ; Erin Grover Service: Telemetry Medical Other Interventions: Discharge Summary Assessment (RN) Last Done: 05/10/19 12:36 DC Date/Time DO NOT enter until pt leaves facility: 05/10/19 13:05
--- NOTE | 2019-05-12 14:48 | Pharmacy Report ---
Pharmacist Post D/C Phone Note - Phone Note: Date of phone call: May 12, 2019. Individual with whom pharmacist spoke to: CRISTOBAL HARO The following questions were reviewed during the phone call with responses listed below each: Can you tell me the medications that you are currently taking as well as when and how you take each medication? -See Table Below When have you missed any doses of your medications? - None What side effects are you having from your medications, specifically, the new medications you were started on? - None What questions do you have about your medications? - None What problems are you having obtaining your medications? - None When is your next appointment with your primary care doctor? - 05/23 Additional comments: - Patient is not taking any acid reflux medication while on Plavix, reviewed stopping after 21 days, reviewed s/s of stroke, patient has had more anxiety worrying about another stroke. Reviewed lifestyle modifications for stroke prevention. As per the Pharmacist Discharge Counseling for Stroke Patients Protocol, this ph one call has been completed within 72 hours of discharge. Thank you for allowing us to be involved in the care of this patient. - Home Medications: Home Medications Medication Instructions Recorded Confirmed spironolactone 25 mg PO BID 05/08/19 05/08/19 New Rx's Medication Instructions Recorded aspirin [Ecotrin Low Strength] 81 mg PO QAM 30 Days #30 tab 05/10/19 atorvastatin 40 mg PO QAM 30 Days #30 tab 05/10/19 clopidogrel 75 mg PO QAM 30 Days #30 tab 05/10/19
[2019-05-14 14:52] LABS: Anti Cardiolipin Ab IgG <14 GPL (< = 14); Anti Cardiolipin Ab IgM 21 MPL (< = 12); Anti-Thrombin III Activity 104 % activity (80-120); B2 Glycoprotein IgA <9 SAU (<=20); B2 Glycoprotein IgG <9 SGU (<=20); B2 Glycoprotein IgM <9 SMU (<=20); Lupus Anticoagulant Negative (Negative); Protein S Functional(Activity) 125 % (60-140)
== END 2019-05-10 13:05 | disposition home or self-care (01) | DRG 65 ==
LOC: ED 21:12 → 2N 21:12